=== PATIENT | male | born 1940 | race Caucasian/White ===

== ENCOUNTER 2018-04-19 18:51 | Emergency (ER) | payer MEDICARE ==
[~2018-04-19] VITALS: Ht 167.6 cm; Wt 63.1 kg
[~2018-04-19 18:51] MED LIST: ASPI81 PO; CLOP75 PO; LOSA25 PO
[2018-04-19 19:05] VITALS: BP 150/114; PULSE 48; RESP 18; TEMP 98.1; O2SAT 97
[2018-04-19] MEDS ORDERED: ASPI-516 CHEW (19:36)
[2018-04-19] MEDS ORDERED: LOSA25TA PO (19:36)
[2018-04-19 19:37] VITALS: BP 134/78
[2018-04-19 20:11] VITALS: BP 140/78; PULSE 48; RESP 18; O2SAT 97
[2018-04-19] MEDS ORDERED: POLY10O RIGHT EYE (20:24)
--- NOTE | 2018-04-19 20:25 | PD ---
HPI Chief Complaint: Eye Problems/Injury Time Seen by Provider: 19:31 Travel History International Travel<30 days: No Contact w/Intl Traveler<30days: No Traveled to known affect area: No History of Present Illness HPI 77-year-old male presents to the emergency department with complaint of injury to his right eye from a branch that swung back, injuring his eye today. Reports redness to the lateral aspect. Denies change in vision or eye pain. Denies eye drainage. Has not taken any medications or try any treatments to alleviate his symptoms. Symptoms are mild in severity. No known aggravating or relieving factors. No known allergies. Primary CARE providers Dr. Norris. History of hypertension. Has no other medical complaints. No other modifying factors or associated signs and symptoms. PFSH Past Medical History Hx Anticoagulant Therapy: Yes Cancer: No Cardiovascular Problems: Yes Diminished Hearing: Yes (BILATERAL HEARING AIDS) Endocrine: No Gastrointestinal Disorders: Yes Headaches: Yes Hiatal Hernia: Yes Hypertension: Yes (BORDERLINE-NON MEDICATED) Musculoskeletal: Yes Neurologic: Yes Reproductive: No Respiratory: No Tetanus Vaccination: Unknown Influenza Vaccination: No ?: Not Past Surgical History Abdominal Surgery: Yes (HERNIA REPAIR) Other Surgery: Yes (HEMMORHOIDS) Social History Alcohol Use: No Tobacco Use: No Substance Use: No Allergies-Medications (Allergen,Severity, Reaction): Coded Allergies: No Known Allergies (Verified Adverse Reaction, Unknown, 04/19/18) Reported Meds & Prescriptions Reported Meds & Active Scripts Active Polytrim Opth Drops (Polymyxin/Trimethoprim Sulfate) 10,000-0.1 Unit/Ml-% Soln 1 Drop RIGHT EYE Q6HR 7 Days Reported Aspirin 81 Mg Chew 81 Mg CHEW DAILY Losartan (Losartan Potassium) 25 Mg Tab 25 Mg PO DAILY Review of Systems Except as stated in HPI: all other systems reviewed are Neg Physical Exam Narrative GENERAL: Well-nourished, well-developed elderly, male patient, in no acute distress SKIN: Warm and dry. HEAD: Atraumatic. Normocephalic. EYES: Pupils equal and round at 3 mm with brisk reaction. PERRLA. EOMI. right lid eversion with no foreign body noted. Right eye without scleral erythema and without lid edema. Subconjunctival hemorrhage noted to the lateral aspect of the right eye. no orbital tenderness, erythema or cellulitis. Right eye without photophobia. No consensual photophobia. No scleral icterus. No drainage. Morrow lamp exam reveals tiny, approximately 2 mm corneal abrasion to the lateral aspect of the sclera of the right eye at the 9 o'clock position. ENT: Mucosa pink and moist. Airway patent. NECK: Trachea midline. CARDIOVASCULAR: Regular rate. RESPIRATORY: No accessory muscle use. GASTROINTESTINAL: Flat. NEUROLOGICAL: Awake and alert. Oriented 3. No obvious cranial nerve deficits. Motor grossly within normal limits. Normal speech. PSYCHIATRIC: Appropriate mood and affect; insight and judgment normal. Data Data Last Documented VS Vital Signs Date Time Temp Pulse Resp B/P (MAP) Pulse Ox O2 Delivery O2 Flow Rate FiO2 04/19/18 20:33 04/19/18 20:11 48 18 97 Room Air 04/19/18 19:05 98.1 Orders Orders Ed Discharge Order (04/19/18 20:25) MDM Medical Decision Making Medical Screen Exam Complete: Yes Emergency Medical Condition: Yes Medical Record Reviewed: Yes Differential Diagnosis Subconjunctival hemorrhage, corneal abrasion, contusion Narrative Course 77-year-old male with a corneal abrasion and subconjunctival hemorrhage of the right eye. Polytrim drops prescribed for home. Patient to follow-up with library supervisor. Instructed patient to follow up with primary care provider. Patient verbalizes understanding and agreement with treatment plan. Patient is medically cleared and stable for discharge. Discussed reasons to return to the emergency department. Patient agrees with treatment plan. The patients vital signs are stable and the patient is stable for outpatient follow-up and treatment. Patient discharged home, stable and in no acute distress. Diagnosis Primary Impression: Corneal abrasion Qualified Codes: S05.01XA - Injury of conjunctiva and corneal abrasion without foreign body, right eye, initial encounter Additional Impression: Subconjunctival hemorrhage of right eye Referrals: Washroom Cleaner Primary Care Physician Patient Instructions: Corneal Abrasion (ED), General Instructions, Subconjunctival Hemorrhage (ED) Additional Instructions: Ibuprofen or Tylenol as directed and as needed to reduce pain Do not patch the eye Do not rub the eye Refrigerated eye drops as needed to reduce pain Cool compresses to the eye as needed to reduce pain Follow-up with ophthalmology Primary care provider Return to the emergency department immediately with worsening of symptoms Med/Other Pt SpecificInfo: Prescription(s) given Scripts Polymyxin B-Trimethoprim Opth Drops (Polytrim Opth Drops) 10,000-0.1 Unit/Ml-% Soln 1 DROP RIGHT EYE Q6HR for Mgmt Bacterial Infection for 7 Days, #1 BOTTLE 0 Refills Prov: Radha Moran 04/19/18 Disposition: 01 DISCHARGE HOME Condition: Stable Radha Moran Apr 19, 2018 20:24
== END 2018-04-19 20:34 | disposition home or self-care (01) ==
LOC: PHEFT 18:51
DX: S05.01XA Injury of conjunctiva and corneal abrasion without foreign body, right eye, initial encounter (principal); H11.31 Conjunctival hemorrhage, right eye; W22.8XXA Striking against or struck by other objects, initial encounter; I10 Essential (primary) hypertension
CPT/HCPCS: 99283